=== PATIENT | male | born 1985 | race Two or more races ===

== ENCOUNTER → 2016-09-21 18:17 | Emergency (ER) | payer OTHER ==
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
== END | disposition home or self-care (01) ==
LOC: CFTX 18:17
DX: S50.02XA Contusion of left elbow, initial encounter (principal); F17.210 Nicotine dependence, cigarettes, uncomplicated; V89.2XXA Person injured in unspecified motor-vehicle accident, traffic, initial encounter; Y92.410 Unspecified street and highway as the place of occurrence of the external cause
CPT/HCPCS: 73080; 99283